=== PATIENT | female | born 1970 | race Two or more races ===

== ENCOUNTER 2017-11-09 15:09 | Emergency (ER) | payer MEDICARE, MEDICAID ==
[~2017-11-09] VITALS: Ht 157.5 cm; Wt 54.4 kg
[2017-11-09] MEDS ORDERED: SODIUM CHLORIDE 0.9% 1,000 ML IVB ONE (16:19)
[2017-11-09 19:03] VITALS: BP 117/94
[2017-11-09 20:48] LABS: Urine Bacteria NONE SEEN /hpf (None Seen); Urine Blood Negative /uL (Negative); Urine Mucus FEW (None Seen); Urine Specific Gravity 1.005 (1.001-1.035); Urine WBC 1 /hpf (0 - 5)
[2017-11-09 21:05] LABS: Amphetamine Screen, Urine NEGATIVE (NEGATIVE); Barbiturate Scree,Urine NEGATIVE (NEGATIVE); Benzodiazephine Screen, Urine NEGATIVE (NEGATIVE); Cocaine Screen, Urine NEGATIVE (NEGATIVE); Opiate Scree,Urine NEGATIVE (NEGATIVE)
[2017-11-09 21:14] LABS: Phencyclidine Screen, Urine NEGATIVE (NEGATIVE)
[2017-11-09 21:21] LABS: Cannabinoid Screen, Urine NEGATIVE (NEGATIVE)
== END 2017-11-09 23:48 | disposition home or self-care (01) ==
LOC: EDBD 15:09 → ER 15:09
DX: R41.82 Altered mental status, unspecified (principal); F10.10 Alcohol abuse, uncomplicated; C56.9 Malignant neoplasm of unspecified ovary; F17.210 Nicotine dependence, cigarettes, uncomplicated; Z88.0 Allergy status to penicillin
CPT/HCPCS: 70450; 71046; 80307; 81001; 93005; 99285; J7030